=== PATIENT | female | born 1980 | race Caucasian/White ===

== ENCOUNTER → 2016-12-15 | Outpatient (CLI) | payer BC, OTHER ==
[~2016-12-15] MED LIST: ASA81BEC PO; ASPIR 8181 MG PO; CALCIUM 500 +1 EAC5 PO; COUMADIN 5 MG TA5 M1 PO; ENOXAPARIN100 MG/11 SUBQ; FERREX PO; FISH OIL 1,0001 EAC5 PO; FLEXERIL PO; IBUPROFEN 800800 MG PO; LOPRESSOR25 PO; LORTAB 5 MG/5001 TA1; MEDROLDOSEPACK PO; MILK THISTLE200 M1 PO; Milk Of Magnesia Conc. PO; NORCO 5-325 TA1 EACH PO; PERCOCET 10-321 EACH PO; PERCOCET 5-3251 EACH PO; PHISOHEX TOP; RELAFEN500 MG PO; SORINE 80 MG TA80 M1 PO; SOTALOL 120 MG120 M1 PO; Senna-Time S Tablet PO; TRAMADOL 50 MG50 MG PO; TUMS PO; UNICOMPLEX M TA1 TA1 PO; XARELTO10 MG PO; XARELTO20 MG PO; [UNRECOGNIZED DRUG - OTHER] PO; [UNRECOGNIZED DRUG - OTHER] PO; [UNRECOGNIZED DRUG - OTHER] PO; [UNRECOGNIZED DRUG - OTHER] PO; [UNRECOGNIZED DRUG - OTHER] PO; [UNRECOGNIZED DRUG - OTHER] PO; [UNRECOGNIZED DRUG - OTHER] PO
--- NOTE | ~2016-12-15 | 2DMMODE ---
[facility] [place] [address] 2 D/M-MODE ECHOCARDIOGRAM Name: RANDY WESTON Room #: [facility]#: [id number] Admission: 12/15/16 Attend Phys: Chico Rodríguez MD Discharge: Date of : 84 Date of Service: 12/15/16 1520 Report #: [id number] THIS REPORT FOR: //name// APPROVED REPORT Study performed: 12/15/2016 13:40:46 EXAM: Comprehensive 2D, Doppler, and color-flow Echocardiogram Patient Location: Out-Patient Blood Pressure: 98/60 mmHg HR: 53 bpm Rhythm: NSR Other Information Study Quality: Good Indications History of MV repair. PFO repair. 2D Dimensions RVDd: 40.04 mm LVEF(%): 65.55 (>50%) IVSd: 9.72 (7-11mm) LVOT Diam: 24.70 (18-24mm) LVDd: 42.09 mm PWd: 10.48 (7-11mm) Ascending Ao: 33.01 (22-36mm) LVDs: 27.08 (25-40mm) Aortic Root: 31.26 mm Kern's LVEF: 65.55 % Volumes Left Atrial Volume (Systole) Single Plane 4CH: 58.45 mL Single Plane 2CH: 64.32 mL LA ESV Index: 37.00 mL/m2 Aortic Valve AoV Peak René.: 1.07 m/s AO Peak Gr.: 4.57 mmHg LVOT Max P.40 mmHg LVOT Max V: 0.92 m/s AUBREY Vmax: 4.14 cm2 Mitral Valve MV Peak Gr.: 14.44 mmHg MV Mean Gr.: 3.51 mmHg [facility] [address] [place] [address] 2 D/M-MODE ECHOCARDIOGRAM Name: RANDY WESTON Room #: [facility]#: [id number] Admission: 12/15/16 Attend Phys: Chico Rodríguez MD Discharge: Date of : 84 Date of Service: 12/15/16 1520 Report #: [id number] MV Decel. Time: 240.10 ms MV Max René.: 1.90 m/s MV Mean René.: 0.77 m/s MV VTI: 493.49 mm MV PHT: 69.63 ms IVRT: 58.82 ms Pulmonary Valve PV Peak René.: 0.91 m/s PV Peak Gr.: 3.33 mmHg Pulmonary Vein P Vein S: 0.55 m/s P Vein D: 0.61 m/s P Vein S/D Ratio: 0.90 Tricuspid Valve TR Peak Reén.: 1.92 m/s RAP Estimate: 5.00 mmHg TR Peak Gr.: 14.81 mmHg RVSP: 20.00 mmHg Left Ventricle The left ventricle is normal size. There is normal LV segmental wall motion. There is normal left ventricular wall thickness. Left ventricular systolic function is normal. LVEF is 55-60%. Right Ventricle The right ventricle is normal size. The right ventricular systolic function is normal. Atria Left atrium is mildly dilated. The right atrium size is normal. Aortic Valve The aortic valve is normal in structure. No aortic regurgitation is present. There is no aortic valvular stenosis. Mitral Valve History of mitral valve repair with a mean pressure gradient of 4mmHg. Mild mitral regurgitation. Tricuspid Valve The tricuspid valve is normal in structure. There is trace to mild tricuspid regurgitation. The right atrial pressure is estimated at 5 mmHg. Estimated PAP is 20mmHg. Pulmonic Valve [address] [address] 2 D/M-MODE ECHOCARDIOGRAM Name: RANDY WESTON Room #: REG [facility]#: [id number] Admission: 12/15/16 Attend Phys: Chico Rodríguez MD Discharge: Date of : 84 Date of Service: 12/15/16 1520 Report #: [id number] The pulmonary valve is normal in structure. Mild pulmonic regurgitation. Great Vessels The aortic root is normal in size. The ascending aorta is normal in size. IVC is normal in size and collapses >50% with inspiration. Pericardium There is no pericardial effusion. <Conclusion> The left ventricle is normal size. Left ventricular systolic function is normal. The right ventricle is normal size. Left atrium is mildly dilated. The right atrium size is normal. The aortic valve is normal in structure. History of mitral valve repair with a mean pressure gradient of 4mmHg. Mild mitral regurgitation. There is trace to mild tricuspid regurgitation. The right atrial pressure is estimated at 5 mmHg. Estimated PAP is 20mmHg. <ELECTRONICALLY SIGNED> By: Chico Rodríguez MD 12/15/16 1520 1520 1520 Chico Rodríguez MD /INF
== END ==
LOC: CV 12-13 07:52
DX: Z95.2 Presence of prosthetic heart valve (principal)

== ENCOUNTER → 2020-03-27 | Outpatient (CLI) | payer BC, OTHER | LOC: LAB 13:30 | PROVIDERS: ATTEND Nurse Practitioner | DX: Z20.828 Contact with and (suspected) exposure to other viral communicable diseases (principal) ==

== ENCOUNTER → 2020-06-10 | Outpatient (CLI) | payer BC, OTHER | LOC: LAB 11:52 | PROVIDERS: ATTEND Nurse Practitioner | DX: U07.1 COVID-19 (principal) ==